=== PATIENT | female | born 1965 | race Caucasian/White ===

== ENCOUNTER 2018-06-17 08:30 | Emergency (ER) | payer MEDICAID ==
[2018-06-17 09:19] LABS: % BASOPHILS 0.6 % (0.0-2.0); % EOSINOPHILS 2.1 % (0.0-5.0); % LYMPHOCYTES 27.5 % (20.0-50.0); % NEUTROPHILS 62.8 % (40.0-80.0); BASOPHILE ABSOLUTE 0.1 Th/cumm (0-0.2); EOSINOPHILE ABSOLUTE 0.2 Th/cmm (0.1-0.4); HEMATOCRIT 34.7 % (41.0-60); HEMOGLOBIN 11.8 gm/dL (12-16); LYMPHOCYTE ABSOLUTE 2.7 Th/cmm (1.5-3.0); MEAN CELL VOLUME 83.6 fl (81-100); MEAN CORPUSCULAR HEMOGLOBIN 28.5 pg (27.0-31.0); MEAN CORPUSCULAR HGB CONC 34.1 pg (28.0-36.0); MEAN PLATELET VOLUME 7.8 fl; MONOCYTE ABSOLUTE 0.7 Th/cmm (0.3-1.0); NEUTROPHILE ABSOLUTE 6.2 Th/cmm (1.8-8.0); PLATELET COUNT 544 Th/cmm (150-400); RED BLOOD COUNT 4.15 Mil/cmm (3.80-5.10); RED CELL DISTRIBUTION WIDTH 13.7 % (11.5-20.0); WHITE BLOOD COUNT 9.9 Th/cmm (4.8-10.8)
--- NOTE | 2018-06-17 09:41 | ED Physician Chart ---
ED Chief Complaint/HPI - Patient Information Date Seen:: 06/17/18 Time Seen:: 08:40 Chief Complaint:: R thigh pain & redness History of Present Illness:: R thigh pain & redness. Patient admits to last meth use last night. Appears to be on meth now. States that she is a diabetic and has not taken any medications for the last 4 years. Her blood sugars ran high yesterday and today. She came in to get checked out. Allergies:: Allergies Allergy/AdvReac Type Severity Reaction Status Date / Time codeine Allergy Verified 06/17/18 08:46 penicillin V Allergy Verified 06/17/18 08:46 Penicillins Allergy Verified 06/17/18 08:46 sulfacetamide Allergy Verified 06/17/18 08:46 [From Sulfamide] Vitals:: Vital Signs - 8 hr 06/17/18 08:39 HR 115 RR 16 BP 138/89 O2 Sat % 97 ED Past Medical History - Past Medical History Obtainable: Yes Past Medical History: DM Social History: Smoker Family Medical History - Family Member Mother Hx Family Hypertension: Yes ED Physical Exam - Physical Examination General/Constitutional: Awake, Well-developed, well-nourished, Alert, No distress, GCS 15, Non-toxic appearing, Ambulatory Other Gen/Cons comments:: acts like she is on methamphetamine right now. Head: Atraumatic Eyes: Lids, conjuctiva normal, PERRL, EOMI Skin: No lymphadenopathy Other ENMT comments:: Tongue with some saliva present. Other comments:: Pannus present with white cream present on pink, moist genitalia (patient has applied yeast cream but no suppositories). Extremities: Full ROM Other Extremities comments:: RLE with edema around the distal lower leg and ankle. Two sores present. The larger one that is present in the pretibial region measures the size of a quarter with fibrin exudate present and a surrounding small area of pinkness present that is 0.2 cm surrounding it. No pus. Patient has been treating this area with triple antibiotic ointment and sporin ointment. RLE more distal area measures 0.2 cm in size and has nearly healed with no infection noted. R posterior thigh has an area that is indurated (not fluctulant) and large amount of cellulitis present which measures 9 inches x 9 inches. Left upper thigh area with a small scab that measures 1.5 cm without cellulitis. Neuro/Psych: Alert/oriented, Normal motor strength, Mood normal, Normal gait, No focal deficits Other Neuro/Psych comments:: patient acts like she is on meth. She admitted to using it last night. ED Labs/Radiology/EKG Results - Lab Results Results: Laboratory Tests 06/17/18 06/17/18 09:13 09:25 WBC 9.9 RBC 4.15 Hgb 11.8 L Hct 34.7 L MCV 83.6 MCH 28.5 MCHC Differential 34.1 RDW 13.7 Plt Count 544 H MPV 7.8 Neutrophils % 62.8 Lymphocytes % 27.5 Monocytes % 7.0 Eosinophils % 2.1 Basophils % 0.6 POC Glucose 538 H* ED Assessment - Assessment General Assessment: RLE wounds with siginificant cellulitis surrounding a possible bite that is not fluctulant on the R posterior thigh. Patient's blood sugar elevated in department at 538 (patient apprised). After having blood drawn and having a heplock placed in the LUE, patient decided to go out for a smoke. I followed the patient out to tell her to come back into the hospital ER. She came back in. I explained to her that I could give her a nicotine patch but that she could not leave to smoke from the ER or from the [facility] (if she got admitted). Fully informed, that patient decided to leave against medical advice. I was going to write her prescription for antibiotics, but she already left. ED Septic Shock - . Is Septic Shock (SBP<90, OR Lactate>4 mmol\L) present?: No - <6hrs of presentation: Vital Signs: Vital Signs - 8 hr 06/17/18 08:39 HR 115 RR 16 BP 138/89 O2 Sat % 97 ED Reassessment (Disposition) - Reassessment Reassessment Condition:: Unchanged - Diagnosis Diagnosis:: RLE cellulitis and thigh bite with 2 other RLE wounds and an L thigh wound. Methamphetamine use Uncontrolled diabetes mellitus. - Patient Disposition Discharge/Transfer:: Against Medical Advice
== END 2018-06-17 09:34 | disposition left against medical advice (07) ==
LOC: ER 08:30
DX: L03.115 Cellulitis of right lower limb (principal); S70.362A Insect bite (nonvenomous), left thigh, initial encounter; S70.361A Insect bite (nonvenomous), right thigh, initial encounter; F15.90 Other stimulant use, unspecified, uncomplicated; E11.9 Type 2 diabetes mellitus without complications; F17.200 Nicotine dependence, unspecified, uncomplicated; Z88.0 Allergy status to penicillin; Z88.2 Allergy status to sulfonamides; Z88.5 Allergy status to narcotic agent; W57.XXXA Bitten or stung by nonvenomous insect and other nonvenomous arthropods, initial encounter; Y93.89 Activity, other specified; Y92.89 Other specified places as the place of occurrence of the external cause; Y99.8 Other external cause status
CPT/HCPCS: 36415-UA; 82948-90; 85025-TC; Z7502